=== PATIENT | male | born 1985 | race Caucasian/White ===

== ENCOUNTER 2016-09-27 17:21 | Inpatient (IN) | payer MEDICAID, OTHER ==
[~2016-09-27] VITALS: Ht 172.7 cm; Wt 87.4 kg
[~2016-09-27 17:21] MED LIST: BUSP10TA23 PO; QUET200T PO; VITAD1000 PO
[2016-09-27] MEDS ORDERED: ZOLPIDEM TARTRATE 10 MG TABLET PO PRN (18:00)
[2016-09-27 18:04] VITALS: BP 150/73
[2016-09-27] MEDS ORDERED: INFLUENZA VIRUS VACCINE QVS 2016-17 (3YR+)/PF 60 MCG/0.5 ML SYRINGE IM ONE (18:30)
[2016-09-27 19:07] VITALS: BP 125/78
[2016-09-27] MEDS ORDERED: IBUPROFEN 600 MG TABLET PO PRN (19:15)
[2016-09-27] MEDS ORDERED: ACETAMINOPHEN 325 MG TABLET PO PRN (19:15)
[2016-09-27] MEDS: LORazepam 2 MG TABLET PO PRN (20:32)
[2016-09-27] MEDS: HALOPERIDOL 5 MG TABLET PO PRN (21:30)
[2016-09-27] MEDS: BACITRACIN 28.4 GM OINTMENT TP SCH (21:59)
[2016-09-28 06:20] VITALS: BP 103/59
[2016-09-28 08:27] VITALS: BP 102/60
[2016-09-28 08:28] LABS: ALANINE AMINOTRANSFERASE 42 U/L (12-78); ALBUMIN 3.7 g/dL (3.4-5.0); ANION GAP 7 mmol/L (8-16); ASPARTATE AMINOTRANSFERASE 19 U/L (15-37); BASOPHILS % (AUTO) 0.5 % (0.0-2.0); BILIRUBIN,TOTAL 1.6 mg/dL (0.1-1.0); CALCIUM, TOTAL 8.9 mg/dL (8.8-10.5); CARBON DIOXIDE 31 mmol/L (22-29); CHLORIDE 105 mmol/L (98-107); EOSINOPHILS % (AUTO) 3.1 % (1.0-6.0); GLOMERULAR FILTR. RATE CALC > 60 mL/min (>60); HEMATOCRIT 40.7 % (41-53); HEMOGLOBIN 13.6 g/dL (13.5-17.5); LYMPHOCYTES # (AUTO) 2.6 K/uL (1.0-4.8); MEAN CORPUSCULAR HEMOGLOBIN 31.1 pg (26.0-34.0); MEAN CORPUSCULAR HGB CONC 33.4 G/dL (31.0-37.0); MEAN CORPUSCULAR VOLUME 93 fL (80-100); MONOCYTES # (AUTO) 0.7 K/uL (0.1-1.0); MONOCYTES % (AUTO) 8.9 % (2.0-9.0); NEUTROPHILS # (AUTO) 4.1 K/uL (1.8-7.7); NEUTROPHILS % (AUTO) 53.5 % (40.0-70.0); PLATELET COUNT (AUTO) 201 K/uL (150-450); POTASSIUM 3.7 mmol/L (3.5-5.1); RED BLOOD CELL COUNT(AUTO) 4.36 MIL/uL (4.50-5.90); RED CELL DISTRIBUTION WIDTH 12.9 % (11.5-14.5); SODIUM SERUM 143 mmol/L (136-145); UREA NITROGEN, BLOOD 11 mg/dL (7-18); WHITE BLOOD COUNT (AUTO) 7.6 K/uL (4.5-11.0)
[2016-09-28] MEDS: NICOTINE 7 MG/24 HOUR PATCH TD SCH (10:24)
[2016-09-28] MEDS: BusPIRone HCL 10 MG TABLET PO SCH ×2 (10:24→16:09)
[2016-09-28] MEDS: BACITRACIN 28.4 GM OINTMENT TP SCH ×2 (10:25→16:10)
[2016-09-28 16:06] VITALS: BP 98/69
[2016-09-28] MEDS: QUEtiapine FUMARATE 200 MG TABLET PO SCH (20:38)
[2016-09-29 06:57] VITALS: BP 108/61
[2016-09-29 08:03] VITALS: BP 106/58
[2016-09-29] MEDS: CHOLECALCIFEROL (VIT D3) 1,000 UNITS TABLET PO SCH (09:57)
[2016-09-29] MEDS: NICOTINE 7 MG/24 HOUR PATCH TD SCH (09:57)
[2016-09-29] MEDS: BusPIRone HCL 10 MG TABLET PO SCH ×2 (09:57→16:52)
[2016-09-29] MEDS: BACITRACIN 28.4 GM OINTMENT TP SCH ×2 (09:57→17:00)
[2016-09-29 16:25] VITALS: BP 110/60
[2016-09-29] MEDS: QUEtiapine FUMARATE 200 MG TABLET PO SCH (20:24)
[2016-09-30 00:05] VITALS: BP 105/65
[2016-09-30] MEDS: NICOTINE 7 MG/24 HOUR PATCH TD SCH (08:47)
[2016-09-30] MEDS: BACITRACIN 28.4 GM OINTMENT TP SCH ×2 (08:47→16:39)
[2016-09-30] MEDS: BusPIRone HCL 10 MG TABLET PO SCH ×2 (08:47→16:39)
[2016-09-30] MEDS: CHOLECALCIFEROL (VIT D3) 1,000 UNITS TABLET PO SCH (08:47)
[2016-09-30 08:49] VITALS: BP 112/66
[2016-09-30 16:07] VITALS: BP 106/64
[2016-09-30] MEDS: QUEtiapine FUMARATE 200 MG TABLET PO SCH (20:57)
[2016-10-01 06:11] VITALS: BP 115/58
[2016-10-01] MEDS: CHOLECALCIFEROL (VIT D3) 1,000 UNITS TABLET PO SCH (08:34)
[2016-10-01] MEDS: BusPIRone HCL 10 MG TABLET PO SCH ×2 (08:34→16:14)
[2016-10-01] MEDS: NICOTINE 7 MG/24 HOUR PATCH TD SCH (08:34)
[2016-10-01] MEDS: BACITRACIN 28.4 GM OINTMENT TP SCH ×2 (08:39→16:14)
[2016-10-01 08:49] VITALS: BP 106/62
[2016-10-01 16:25] VITALS: BP 112/68
[2016-10-01] MEDS: QUEtiapine FUMARATE 200 MG TABLET PO SCH (20:33)
[2016-10-02 07:27] VITALS: BP 106/70
[2016-10-02 08:46] VITALS: BP 107/63
[2016-10-02] MEDS: QUEtiapine FUMARATE 100 MG TABLET PO SCH (09:11)
[2016-10-02] MEDS: BusPIRone HCL 10 MG TABLET PO SCH ×2 (09:11→16:21)
[2016-10-02] MEDS: ESCITALOPRAM OXALATE 10 MG TABLET PO SCH (09:11)
[2016-10-02] MEDS: CHOLECALCIFEROL (VIT D3) 1,000 UNITS TABLET PO SCH (09:11)
[2016-10-02] MEDS: NICOTINE 7 MG/24 HOUR PATCH TD SCH (09:14)
[2016-10-02] MEDS: BACITRACIN 28.4 GM OINTMENT TP SCH ×2 (09:14→16:21)
[2016-10-02 17:30] VITALS: BP 111/62
[2016-10-02] MEDS: QUEtiapine FUMARATE 200 MG TABLET PO SCH (20:50)
[2016-10-03 06:39] VITALS: BP 98/56
[2016-10-03 08:06] VITALS: BP 115/65
[2016-10-03] MEDS: ESCITALOPRAM OXALATE 10 MG TABLET PO SCH (09:18)
[2016-10-03] MEDS: BACITRACIN 28.4 GM OINTMENT TP SCH ×2 (09:18→16:24)
[2016-10-03] MEDS: CHOLECALCIFEROL (VIT D3) 1,000 UNITS TABLET PO SCH (09:18)
[2016-10-03] MEDS: BusPIRone HCL 10 MG TABLET PO SCH ×2 (09:18→16:24)
[2016-10-03] MEDS: QUEtiapine FUMARATE 100 MG TABLET PO SCH (09:18)
[2016-10-03] MEDS: NICOTINE 7 MG/24 HOUR PATCH TD SCH (09:49)
[2016-10-03] MEDS: HALOPERIDOL 5 MG TABLET PO PRN (13:15)
[2016-10-03] MEDS: LORazepam 2 MG TABLET PO PRN (13:15)
[2016-10-03 16:33] VITALS: BP 105/63
[2016-10-03] MEDS: QUEtiapine FUMARATE 200 MG TABLET PO SCH (20:39)
[2016-10-04 00:06] VITALS: BP 105/62
[2016-10-04 08:06] VITALS: BP 108/56
[2016-10-04] MEDS: BusPIRone HCL 10 MG TABLET PO SCH ×2 (09:10→16:57)
[2016-10-04] MEDS: NICOTINE 7 MG/24 HOUR PATCH TD SCH (09:10)
[2016-10-04] MEDS: ESCITALOPRAM OXALATE 10 MG TABLET PO SCH (09:11)
[2016-10-04] MEDS: CHOLECALCIFEROL (VIT D3) 1,000 UNITS TABLET PO SCH (09:11)
[2016-10-04] MEDS: QUEtiapine FUMARATE 100 MG TABLET PO SCH (09:11)
[2016-10-04] MEDS: BACITRACIN 28.4 GM OINTMENT TP SCH ×2 (09:11→17:24)
[2016-10-04] MEDS: HALOPERIDOL 5 MG TABLET PO PRN (13:49)
[2016-10-04] MEDS: LORazepam 2 MG TABLET PO PRN (13:49)
[2016-10-04 16:00] VITALS: BP 109/61
[2016-10-04] MEDS: QUEtiapine FUMARATE 200 MG TABLET PO SCH (20:37)
[2016-10-05 00:13] VITALS: BP 104/62
[2016-10-05 08:35] VITALS: BP 110/59
[2016-10-05] MEDS: QUEtiapine FUMARATE 100 MG TABLET PO SCH (08:36)
[2016-10-05] MEDS: CHOLECALCIFEROL (VIT D3) 1,000 UNITS TABLET PO SCH (08:36)
[2016-10-05] MEDS: NICOTINE 7 MG/24 HOUR PATCH TD SCH (08:36)
[2016-10-05] MEDS: BACITRACIN 28.4 GM OINTMENT TP SCH ×2 (08:38→16:15)
[2016-10-05] MEDS: ESCITALOPRAM OXALATE 10 MG TABLET PO SCH (08:38)
[2016-10-05] MEDS: BusPIRone HCL 10 MG TABLET PO SCH ×2 (08:38→16:33)
[2016-10-05] MEDS: LORazepam 2 MG TABLET PO PRN ×2 (08:42→16:15)
[2016-10-05] MEDS: HALOPERIDOL 5 MG TABLET PO PRN ×2 (08:42→16:15)
[2016-10-05 16:19] VITALS: BP 118/65
[2016-10-05] MEDS: QUEtiapine FUMARATE 200 MG TABLET PO SCH (20:45)
[2016-10-05] MEDS ORDERED: ESCI5TAB PO (21:18)
[2016-10-05] MEDS ORDERED: QUET50TA PO (21:18)
[2016-10-06 01:11] VITALS: BP 103/58
== END 2016-10-06 08:10 | disposition home or self-care (01) | DRG 750 ==
LOC: B2S 18:36 → EDSTATUS 19:13 → B2S 09-29 13:25
DX: F25.1 Schizoaffective disorder, depressive type (principal); R45.851 Suicidal ideations; E55.9 Vitamin D deficiency, unspecified; B19.20 Unspecified viral hepatitis C without hepatic coma; F12.90 Cannabis use, unspecified, uncomplicated; F15.10 Other stimulant abuse, uncomplicated; F17.200 Nicotine dependence, unspecified, uncomplicated; F22 Delusional disorders; G47.00 Insomnia, unspecified; F41.9 Anxiety disorder, unspecified; R51 Headache; Z72.89 Other problems related to lifestyle; Z71.41 Alcohol abuse counseling and surveillance of alcoholic; Z71.6 Tobacco abuse counseling; Z71.51 Drug abuse counseling and surveillance of drug abuser; Z91.5 Personal history of self-harm; Z98.890 Other specified postprocedural states; Z56.0 Unemployment, unspecified; Z79.899 Other long term (current) drug therapy; Z28.09 Immunization not carried out because of other contraindication
CPT/HCPCS: 87081; 90471

== ENCOUNTER 2018-06-06 12:59 | Emergency (ER) | payer MEDICAID, OTHER ==
[~2018-06-06] VITALS: Ht 172.7 cm; Wt 84.1 kg
[~2018-06-06 12:59] MED LIST changes: +ESCI5TAB PO; +QUET50TA PO
[2018-06-06] MEDS ORDERED: QUET100T PO (13:38)
[2018-06-06] MEDS ORDERED: DiphenhydrAMINE HCL 50 MG/ML VIAL IM ONE (13:45)
[2018-06-06] MEDS ORDERED: LORazepam 2 MG/ML VIAL IM ONE (13:45)
[2018-06-06 13:55] LABS: EOSINOPHILS % (AUTO) 1.1 % (1.0-6.0); HEMATOCRIT 40.9 % (41-53); HEMOGLOBIN 14.2 g/dL (13.5-17.5); LYMPHOCYTES # (AUTO) 2.8 K/uL (1.0-4.8); LYMPHOCYTES % (AUTO) 31.7 % (22.0-44.0); MEAN CORPUSCULAR HGB CONC 34.6 G/dL (31.0-37.0); MEAN CORPUSCULAR VOLUME 93 fL (80-100); MONOCYTES # (AUTO) 0.6 K/uL (0.1-1.0); MONOCYTES % (AUTO) 7.1 % (2.0-9.0); NEUTROPHILS # (AUTO) 5.3 K/uL (1.8-7.7); NEUTROPHILS % (AUTO) 59.1 % (40.0-70.0); PLATELET COUNT (AUTO) 185 K/uL (150-450); RED BLOOD CELL COUNT(AUTO) 4.42 MIL/uL (4.50-5.90); RED CELL DISTRIBUTION WIDTH 12.9 % (11.5-14.5)
[2018-06-06 14:02] LABS: ANION GAP 9 mmol/L (8-16); CALCIUM, TOTAL 8.4 mg/dL (8.8-10.5); CARBON DIOXIDE 28 mmol/L (22-29); CHLORIDE 103 mmol/L (98-107); CREATININE 0.94 mg/dL (0.60-1.30); GLOMERULAR FILTR. RATE CALC > 60 mL/min (>60); GLUCOSE,RANDOM 100 mg/dL (70-110); POTASSIUM 3.2 mmol/L (3.5-5.1); SODIUM SERUM 140 mmol/L (136-145); UREA NITROGEN, BLOOD 22 mg/dL (7-18)
[2018-06-06 14:09] LABS: ALANINE AMINOTRANSFERASE 26 U/L (12-78); ALKALINE PHOSPHATASE 53 U/L (46-116); ASPARTATE AMINOTRANSFERASE 19 U/L (15-37); BILIRUBIN,TOTAL 0.4 mg/dL (0.1-1.0); TOTAL PROTEIN, SERUM 7.4 g/dL (6.4-8.2)
[2018-06-06] MEDS ORDERED: HALOPERIDOL LACTATE 5 MG/ML VIAL IM ONE (14:45)
[2018-06-06] MEDS ORDERED: POTASSIUM CHLORIDE 20 MEQ ER TABLET PO ONE (20:45)
[2018-06-06 21:20] VITALS: BP 126/48
== END 2018-06-06 21:41 | disposition home or self-care (01) ==
LOC: EMS 13:00
DX: F25.9 Schizoaffective disorder, unspecified (principal); E87.6 Hypokalemia; F41.9 Anxiety disorder, unspecified; F17.210 Nicotine dependence, cigarettes, uncomplicated; F11.90 Opioid use, unspecified, uncomplicated; F12.90 Cannabis use, unspecified, uncomplicated; F15.90 Other stimulant use, unspecified, uncomplicated; Z86.73 Personal history of transient ischemic attack (TIA), and cerebral infarction without residual deficits; Z79.899 Other long term (current) drug therapy; Z72.89 Other problems related to lifestyle
CPT/HCPCS: 36415; 80053; 85025; 96372; 99285; G0480; J1200; J1630; J2060

== ENCOUNTER 2018-06-11 15:25 | Emergency (ER) | payer OTHER ==
[~2018-06-11] VITALS: Ht 172.7 cm; Wt 81.8 kg
[~2018-06-11 15:25] MED LIST changes: +QUET100T PO; -QUET50TA PO
[2018-06-11] MEDS ORDERED: HALOPERIDOL 5 MG TABLET PO ONE (17:15)
[2018-06-11] MEDS ORDERED: DiphenhydrAMINE HCL 25 MG CAPSULE PO ONE (17:15)
[2018-06-11] MEDS ORDERED: LORazepam 1 MG TABLET PO ONE (17:15)
[2018-06-11] MEDS ORDERED: BUPR150SR PO (17:31)
[2018-06-11 17:51] LABS: BASOPHILS % (AUTO) 0.5 % (0.0-2.0); EOSINOPHILS % (AUTO) 0.3 % (1.0-6.0); HEMATOCRIT 42.6 % (41-53); HEMOGLOBIN 14.7 g/dL (13.5-17.5); LYMPHOCYTES # (AUTO) 2.5 K/uL (1.0-4.8); LYMPHOCYTES % (AUTO) 25.7 % (22.0-44.0); MEAN CORPUSCULAR HEMOGLOBIN 31.9 pg (26.0-34.0); MEAN CORPUSCULAR HGB CONC 34.5 G/dL (31.0-37.0); MEAN CORPUSCULAR VOLUME 93 fL (80-100); MONOCYTES # (AUTO) 0.8 K/uL (0.1-1.0); MONOCYTES % (AUTO) 7.8 % (2.0-9.0); NEUTROPHILS # (AUTO) 6.4 K/uL (1.8-7.7); NEUTROPHILS % (AUTO) 65.7 % (40.0-70.0); PLATELET COUNT (AUTO) 206 K/uL (150-450); RED BLOOD CELL COUNT(AUTO) 4.61 MIL/uL (4.50-5.90); RED CELL DISTRIBUTION WIDTH 13.1 % (11.5-14.5)
[2018-06-11 17:54] LABS: ANION GAP 17 mmol/L (8-16); CALCIUM, TOTAL 9.3 mg/dL (8.8-10.5); CARBON DIOXIDE 22 mmol/L (22-29); CHLORIDE 102 mmol/L (98-107); GLOMERULAR FILTR. RATE CALC > 60 mL/min (>60); GLUCOSE,RANDOM 116 mg/dL (70-110); POTASSIUM 3.3 mmol/L (3.5-5.1); SODIUM SERUM 141 mmol/L (136-145); UREA NITROGEN, BLOOD 19 mg/dL (7-18)
[2018-06-11 17:59] LABS: ALANINE AMINOTRANSFERASE 30 U/L (12-78); ALBUMIN 4.4 g/dL (3.4-5.0); ALKALINE PHOSPHATASE 59 U/L (46-116); ASPARTATE AMINOTRANSFERASE 29 U/L (15-37); BILIRUBIN,TOTAL 1.3 mg/dL (0.1-1.0)
[2018-06-11 19:29] VITALS: BP 159/102
[2018-06-11 20:26] LABS: AMPHET/METH SCREEN,URINE POSITIVE (NEGATIVE); BARBITURATE SCREEN, URINE NEGATIVE (NEGATIVE); BENZODIAZEPINES SCREEN,URINE NEGATIVE (NEGATIVE); CANNABINOID SCREEN,URINE POSITIVE (NEGATIVE); COCAINE SCREEN,URINE NEGATIVE (NEGATIVE); METHADONE SCREEN, URINE NEGATIVE (NEGATIVE); OPIATE SCREEN,URINE NEGATIVE (NEGATIVE); PHENCYCLIDINE SCREEN,URINE NEGATIVE (NEGATIVE)
== END 2018-06-11 21:05 | disposition home or self-care (01) ==
LOC: EMS 15:25
DX: F15.10 Other stimulant abuse, uncomplicated (principal); F41.9 Anxiety disorder, unspecified; F20.9 Schizophrenia, unspecified; F17.210 Nicotine dependence, cigarettes, uncomplicated; F11.90 Opioid use, unspecified, uncomplicated; F12.90 Cannabis use, unspecified, uncomplicated; Z59.0 Homelessness; Z86.73 Personal history of transient ischemic attack (TIA), and cerebral infarction without residual deficits; Z98.890 Other specified postprocedural states; Z79.899 Other long term (current) drug therapy
CPT/HCPCS: 36415; 80053; 80307; 85025; 99285; G0480

== ENCOUNTER 2021-10-26 20:52 | Inpatient (IN) | payer MEDICAID, OTHER ==
[~2021-10-26] VITALS: Ht 172.7 cm; Wt 77.2 kg
[~2021-10-26 20:52] MED LIST changes: +BUPR150SR PO; -BUSP10TA23 PO; -ESCI5TAB PO; -QUET100T PO; -QUET200T PO; -VITAD1000 PO
[2021-10-26 21:14] LABS: BASOPHILS % (AUTO) 0.5 % (0.0-2.0); EOSINOPHILS % (AUTO) 0.3 % (1.0-6.0); HEMATOCRIT 41.8 % (41-53); HEMOGLOBIN 14.3 g/dL (13.5-17.5); LYMPHOCYTES # (AUTO) 1.3 K/uL (1.0-4.8); LYMPHOCYTES % (AUTO) 13.4 % (22.0-44.0); MEAN CORPUSCULAR HEMOGLOBIN 30.5 pg (26.0-34.0); MEAN CORPUSCULAR HGB CONC 34.2 G/dL (31.0-37.0); MEAN CORPUSCULAR VOLUME 89 fL (80-100); MONOCYTES # (AUTO) 0.5 K/uL (0.1-1.0); MONOCYTES % (AUTO) 5.6 % (2.0-9.0); NEUTROPHILS # (AUTO) 7.8 K/uL (1.8-7.7); NEUTROPHILS % (AUTO) 80.2 % (40.0-70.0); PLATELET COUNT (AUTO) 222 K/uL (150-450); RED BLOOD CELL COUNT(AUTO) 4.68 MIL/uL (4.50-5.90); RED CELL DISTRIBUTION WIDTH 13.2 % (11.5-14.5)
[2021-10-26 21:20] LABS: ANION GAP 10 mmol/L (8-16); CALCIUM, TOTAL 9.1 mg/dL (8.8-10.5); CARBON DIOXIDE 26 mmol/L (22-29); CHLORIDE 101 mmol/L (98-107); CREATININE 1.15 mg/dL (0.60-1.30); GLOMERULAR FILTR. RATE CALC > 60 mL/min (>60); GLUCOSE,RANDOM 130 mg/dL (70-110); POTASSIUM 3.7 mmol/L (3.5-5.1); SODIUM SERUM 137 mmol/L (136-145); UREA NITROGEN, BLOOD 16 mg/dL (7-18)
[2021-10-26 21:26] LABS: ALANINE AMINOTRANSFERASE 34 U/L (12-78); ALKALINE PHOSPHATASE 50 U/L (46-116); ASPARTATE AMINOTRANSFERASE 29 U/L (15-37); BILIRUBIN,TOTAL 0.8 mg/dL (0.1-1.0); TOTAL PROTEIN, SERUM 7.9 g/dL (6.4-8.2)
[2021-10-26 22:01] LABS: SALICYLATE 0.6 mg/dL (2.8-20.0)
[2021-10-26 22:06] LABS: ACETAMINOPHEN < 2 mcg/mL (10-30)
[2021-10-26 22:08] LABS: COVID AG,FIA SOURCE NASAL SWAB
[2021-10-26 22:24] LABS: AMPHET/METH SCREEN,URINE POSITIVE (NEGATIVE); BARBITURATE SCREEN, URINE NEGATIVE (NEGATIVE); BENZODIAZEPINES SCREEN,URINE NEGATIVE (NEGATIVE); CANNABINOID SCREEN,URINE POSITIVE (NEGATIVE); COCAINE SCREEN,URINE NEGATIVE (NEGATIVE); METHADONE SCREEN, URINE NEGATIVE (NEGATIVE); OPIATE SCREEN,URINE NEGATIVE (NEGATIVE); PHENCYCLIDINE SCREEN,URINE NEGATIVE (NEGATIVE)
[2021-10-26] MEDS ORDERED: ZOLPIDEM TARTRATE 10 MG TABLET PO PRN (23:15)
[2021-10-26] MEDS ORDERED: HALOPERIDOL LACTATE 5 MG/ML VIAL IM ONE (23:45)
[2021-10-26] MEDS ORDERED: DiphenhydrAMINE HCL 50 MG/ML VIAL IM ONE (23:45)
[2021-10-26] MEDS ORDERED: LORazepam 2 MG/ML VIAL IM ONE (23:45)
[2021-10-26] MEDS ORDERED: DiphenhydrAMINE HCL 50 MG CAPSULE ONE (23:53)
[2021-10-27] MEDS ORDERED: DiphenhydrAMINE HCL 50 MG CAPSULE PO ONE
[2021-10-27] MEDS ORDERED: LORazepam 2 MG TABLET PO ONE
[2021-10-27] MEDS ORDERED: HALOPERIDOL 5 MG TABLET PO ONE
[2021-10-27 07:41] LABS: APPEARANCE,URINE CLEAR (CLEAR); BILIRUBIN,URINE NEGATIVE (NEGATIVE); GLUCOSE, URINE (UA) NEGATIVE (NEGATIVE); LEUKOCYTE ESTERASE ,URINE NEGATIVE (NEGATIVE); NITRATE,URINE NEGATIVE (NEGATIVE); OCCULT BLOOD,URINE NEGATIVE (NEGATIVE); PROTEIN,URINE NEGATIVE (NEGATIVE); UROBILINOGEN,URINE <=1.0 mg/dL (<=1.0)
[2021-10-27 12:10] VITALS: BP 100/62
[2021-10-27] MEDS ORDERED: INFLUENZA VIRUS VACCINE QVS 2021-22 (6MO+)/PF 60 MCG/0.5 ML SYRINGE IM. ONE (14:30)
[2021-10-27] MEDS ORDERED: PNEUMOCOCCAL VACCINE POLYVALENT 0.5 ML VIAL [PPSV23] IM. ONE (14:30)
[2021-10-27 17:09] VITALS: BP 102/64
[2021-10-27 19:40] VITALS: BP 110/57
[2021-10-27] MEDS: LORazepam 2 MG TABLET PO PRN (20:45)
[2021-10-27] MEDS: HALOPERIDOL 5 MG TABLET PO PRN (20:45)
[2021-10-28 04:52] VITALS: BP 110/76
[2021-10-28] MEDS: LORazepam 2 MG TABLET PO PRN (08:58)
[2021-10-28] MEDS: HALOPERIDOL 5 MG TABLET PO PRN (08:58)
[2021-10-28 10:04] VITALS: BP 116/74
[2021-10-28] MEDS ORDERED: PETROLATUM,WHITE 28 GM JELLY TP PRN (15:30)
[2021-10-28] MEDS ORDERED: DOCUSATE SODIUM 100 MG CAPSULE PO PRN (15:30)
[2021-10-28] MEDS ORDERED: MAG HYDROX/AL HYDROX/SIMETH ES 30 ML SUSPENSION UDCUP PO PRN (15:30)
[2021-10-28] MEDS ORDERED: ONDANSETRON HCL 4 MG TABLET PO PRN (15:30)
[2021-10-28] MEDS ORDERED: CloNIDine HCL 0.1 MG TABLET PO PRN (15:30)
[2021-10-28] MEDS ORDERED: MAGNESIUM HYDROXIDE SUSPENSION 30 ML UDCUP PO PRN (15:30)
[2021-10-28] MEDS ORDERED: GuaiFENesin/D-METHORPHAN [SUGAR-FREE] 200-20MG/10 ML SYRUP UDCUP PO PRN (15:30)
[2021-10-28] MEDS ORDERED: LOPERAMIDE HCL 2 MG CAPSULE PO PRN (15:30)
[2021-10-28] MEDS ORDERED: ACETAMINOPHEN 325 MG TABLET PO PRN (15:30)
[2021-10-28] MEDS ORDERED: IBUPROFEN 400 MG TABLET PO PRN (15:30)
[2021-10-28] MEDS ORDERED: ALBUTEROL SULFATE HFA 90 MCG/PUFF 8 GM INHALER IH PRN (15:30)
[2021-10-28 19:12] VITALS: BP 122/76
[2021-10-28] MEDS: QUEtiapine FUMARATE 100 MG TABLET PO SCH (21:32)
[2021-10-29 05:34] VITALS: BP 103/62
[2021-10-29 11:11] VITALS: BP 114/70
[2021-10-29] MEDS: LORazepam 2 MG TABLET PO PRN ×2 (12:44→20:54)
[2021-10-29] MEDS: HALOPERIDOL 5 MG TABLET PO PRN (13:29)
[2021-10-29] MEDS: NICOTINE 14 MG/24 HOUR PATCH TD PRN (14:11)
[2021-10-29 16:16] VITALS: BP 112/70
[2021-10-29] MEDS: QUEtiapine FUMARATE 100 MG TABLET PO SCH (20:54)
[2021-10-30 06:10] VITALS: BP 119/70
[2021-10-30 08:06] VITALS: BP 120/72
[2021-10-30] MEDS: LORazepam 2 MG TABLET PO PRN ×2 (12:51→17:46)
[2021-10-30] MEDS: NICOTINE 14 MG/24 HOUR PATCH TD PRN (12:52)
[2021-10-30 16:48] VITALS: BP 104/60
[2021-10-30] MEDS: QUEtiapine FUMARATE 100 MG TABLET PO SCH (20:54)
[2021-10-31 04:43] VITALS: BP 112/68
[2021-10-31 08:41] VITALS: BP 122/65
== END 2021-11-01 07:11 | disposition left against medical advice (07) | DRG 750 ==
LOC: EMS 20:52 → B3A 10-27 08:51
PROVIDERS: ADMIT Psychiatry & Neurology Child & Adolescent Psychiatry; ATTEND Psychiatry & Neurology Child & Adolescent Psychiatry
DX: F25.1 Schizoaffective disorder, depressive type (principal); R45.851 Suicidal ideations; K70.30 Alcoholic cirrhosis of liver without ascites; G44.209 Tension-type headache, unspecified, not intractable; E56.9 Vitamin deficiency, unspecified; Y90.9 Presence of alcohol in blood, level not specified; Z20.822 Contact with and (suspected) exposure to COVID-19; F41.9 Anxiety disorder, unspecified; F17.210 Nicotine dependence, cigarettes, uncomplicated; F15.10 Other stimulant abuse, uncomplicated; F12.10 Cannabis abuse, uncomplicated; F11.10 Opioid abuse, uncomplicated; Z53.29 Procedure and treatment not carried out because of patient's decision for other reasons; F10.239 Alcohol dependence with withdrawal, unspecified; Z79.899 Other long term (current) drug therapy; Z86.73 Personal history of transient ischemic attack (TIA), and cerebral infarction without residual deficits; Z28.21 Immunization not carried out because of patient refusal
CPT/HCPCS: 80053; 81003; 85025; 99285; G0480; G0481; J1200; J1630; J2060; J3535